=== PATIENT | male | born 1990 | race Caucasian/White ===

== ENCOUNTER 2024-01-09 14:53 | Emergency (ER) | payer MEDICAID, OTHER ==
[~2024-01-09] VITALS: Ht 167.6 cm; Wt 48.0 kg
[~2024-01-09 14:53] MED LIST: ABIL10; FLUO20CA33
[2024-01-09 15:21] VITALS: O2SAT 97
[2024-01-09 18:57] LABS: BASOPHILS % 0.6 % (0.0-2.0); EOSINOPHILS % 1.5 % (0.0-5.0); HEMATOCRIT. 47.9 % (42.0-52.0); HEMOGLOBIN. 16.7 g/dL (14.0-18.0); LYMPHOCYTES % 11.4 % (20.0-50.0); MEAN CORPUSCULAR HEMOGLOBIN 31.6 pg (28.0-32.0); MEAN CORPUSCULAR HGB CONC 34.8 g/dL (31.0-37.0); MEAN CORPUSCULAR VOLUME 90.9 fL (80.0-94.0); MEAN PLATELET VOLUME 9.3 fl (7.4-10.4); MONOCYTES % 5.3 % (2.0-8.0); NEUTROPHILS % 81.2 % (40.0-76.0); PLATELET 270 x1000/uL (130-400); RED BLOOD CELL COUNT 5.27 mill/uL (4.7-6.1); RED CELL DISTRIBUTION WIDTH 13.8 % (11.6-14.6); WHITE BLOOD COUNT 8.9 x1000/uL (4.5-11.0)
[2024-01-09 19:06] LABS: CHLORIDE 108 mEq/L (98-107); POTASSIUM 4.3 mEq/L (3.5-5.1); SODIUM 140 mEq/L (136-145)
[2024-01-09 19:07] LABS: CALCIUM 9.5 mg/dL (8.7-10.4); CARBON DIOXIDE 26 mEq/L (21-32)
[2024-01-09 19:12] LABS: CREATININE 0.7 mg/dL (0.6-1.3); GLUCOSE 110 mg/dL (70-105); UREA NITROGEN BLOOD 7 mg/dL (9-23)
[2024-01-09] MEDS ORDERED: DEXAMETHASONE 10 MG/ML VIAL PO ONE (19:45)
[2024-01-09] MEDS ORDERED: KETOROLAC 15MG/ML VIAL IM ONE (19:45)
[2024-01-09] MEDS ORDERED: METOCLOPRAMIDE HCL 10MG TABLET PO ONE (19:45)
[2024-01-09] MEDS: KETOROLAC 15MG/ML VIAL IM NR (21:32)
[2024-01-09] MEDS: METOCLOPRAMIDE HCL 10MG TABLET PO NR (21:32)
[2024-01-09] MEDS: DEXAMETHASONE 10 MG/ML VIAL PO NR (21:32)
[2024-01-09 21:33] VITALS: BP 117/74; PULSE 90; RESP 17; TEMP 36.61404; O2SAT 98
== END 2024-01-09 21:33 | disposition home or self-care (01) ==
LOC: ER 15:16
DX: R51.9 Headache, unspecified (principal); R11.2 Nausea with vomiting, unspecified; J45.909 Unspecified asthma, uncomplicated; Z90.49 Acquired absence of other specified parts of digestive tract; Z79.899 Other long term (current) drug therapy
CPT/HCPCS: 99285; 70450; 80048; 85025; 36415; 96372; J8597; J1100; J1885

== ENCOUNTER 2024-07-19 08:30 | Emergency (ER) | payer OTHER ==
[~2024-07-19] VITALS: Ht 167.6 cm; Wt 51.0 kg
[~2024-07-19 08:30] MED LIST changes: +ALBU18HF2 IH; +FLUT1DIS3 INH
[2024-07-19 08:44] VITALS: O2SAT 96
[2024-07-19] MEDS: ACETAMINOPHEN 325MG TABLET PO NR (09:33)
[2024-07-19] MEDS: METOCLOPRAMIDE HCL 10MG/2ML VIAL IV NR (09:33)
[2024-07-19] MEDS: SODIUM CHLORIDE 0.9% 500 ML IV ONE (09:34)
[2024-07-19 11:33] VITALS: BP 119/70; PULSE 82; RESP 18; TEMP 36.9; O2SAT 98
== END 2024-07-19 11:57 | disposition home or self-care (01) ==
LOC: ER 08:30
DX: G43.909 Migraine, unspecified, not intractable, without status migrainosus (principal); J45.909 Unspecified asthma, uncomplicated; F41.9 Anxiety disorder, unspecified; Z79.899 Other long term (current) drug therapy; Z86.59 Personal history of other mental and behavioral disorders; Z90.49 Acquired absence of other specified parts of digestive tract
CPT/HCPCS: 96361; 96374; 99283; J2765; Z7610 ×2

== ENCOUNTER 2024-08-01 08:06 | Emergency (ER) | payer OTHER ==
[~2024-08-01] VITALS: Ht 167.6 cm; Wt 51.0 kg
[2024-08-01 08:15] VITALS: TEMP 36.6; O2SAT 98
[2024-08-01] MEDS ORDERED: PSEU120T56 MT (08:47)
[2024-08-01] MEDS ORDERED: AMOX1TAB16 MT (08:47)
[2024-08-01 09:10] VITALS: BP 125/87; PULSE 75; RESP 16; O2SAT 100
== END 2024-08-01 09:21 | disposition home or self-care (01) ==
LOC: ER 08:06
DX: J01.90 Acute sinusitis, unspecified (principal); F41.9 Anxiety disorder, unspecified; J45.909 Unspecified asthma, uncomplicated; Z79.899 Other long term (current) drug therapy; Z86.59 Personal history of other mental and behavioral disorders; Z90.49 Acquired absence of other specified parts of digestive tract
CPT/HCPCS: 99283